=== PATIENT | female | born 2000 | race Caucasian/White ===

== ENCOUNTER → 2020-01-14 11:00 | Outpatient (CLI) | payer OTHER, MEDICAID, SELFPAY ==
--- NOTE | 2020-01-14 11:08 | ECHOD_ITS ---
Reason For Study: Chest pain Procedure This was a 2D Doppler, Color Flow transthoracic echocardiogram. Exam performed in department. Left Ventricle Normal LV size. Left ventricular systolic function is normal. The estimated ejection fraction is 55 %. Normal diastology for age. No regional wall motion abnormalities noted. Right Ventricle Normal RV size. Normal systolic function. Atria Normal left atrium. Normal right atrium. Mitral Valve Normal mitral valve. Tricuspid Valve Normal tricuspid valve. Aortic Valve Normal aortic valve. Trisinus/trileaflet aortic valve. Pulmonic Valve Normal pulmonic valve. Great Vessels Normal aortic root. The pulmonary artery is normal size. Normal inferior vena cava. Pericardium/Pleural No pericardial effusion. MMode/2D Measurements & Calculations LVIDd: 4.7 cm IVSd: 0.77 cm Ao root diam: 2.4 cm LVIDs: 3.2 cm LVPWd: 0.76 cm RVDd: 2.9 cm FS: 31.2 % LAV(MOD-bp): 39.1 ml LVAd ap4: 26.5 cm2 SV(MOD-sp4): 37.5 ml LAV(MOD-bp) Indexed: 21.5 ml/m2 EDV(MOD-sp4): 66.3 ml LAV(MOD-sp2): 26.4 ml EDV(sp4-el): 69.2 ml LAV(MOD-sp4): 43.9 ml LVAs ap4: 15.1 cm2 ESV(MOD-sp4): 28.8 ml ESV(sp4-el): 28.4 ml EF(MOD-sp4): 56.6 % EF(sp4-el): 59.0 % SV(sp4-el): 40.8 ml LA A4 area: 17.0 cm2 LA dimension(2D): 2.6 cm RA A4 area: 9.8 cm2 Doppler Measurements & Calculations MV E max rusty: 105.8 cm/sec Lat Peak E' Rusty: 24.3 cm/sec Med Peak E' Rusty: 14.1 cm/sec MV A max rusty: 81.0 cm/sec E/E' lat: 4.4 E/E' med: 7.5 MV E/A: 1.3 Ao V2 max: 146.8 cm/sec LV V1 max: 108.1 cm/sec PA V2 max: 107.7 cm/sec Ao max P.6 mmHg LV V1 max P.7 mmHg Interpretation Summary Normal LV size. Left ventricular systolic function is normal. The estimated ejection fraction is 55 %. Normal diastology for age. Ordering Physician: LINDSEY MCDONNELL Referring Physician: LINDSEY MCDONNELL Performed By: Nayana Cook RDCS
== END ==
DX: R07.89 Other chest pain (principal)
CPT/HCPCS: 93306

== ENCOUNTER → 2020-02-22 | Outpatient (CLI) | payer OTHER, SELFPAY ==
[2020-02-22 12:40] VITALS: BMI 21.2
[2020-02-22 16:45] LABS: Mucous, Urine 0 SEEN /hpf (<or=2+)
[2020-02-22 17:04] LABS: Color, Urine Yellow (Yellow); Glucose, Dipstick Normal (Normal); Leukocyte Esterase-Dipstick 25 /ul (Negative); Nitrite-Dipstick Negative (Negative); Occult Blood-Urine 150 /ul (Negative); Protein-Dipstick 30 mg/dl (Negative); Specific Gravity, Urine 1.025 (1.002-1.030); Urine Bilirubin Dipstick Negative (Negative); Urine Clarity Sl. Cloudy (Clear); Urine Urobilinogen 1 mg/dl (Normal)
[2020-02-22 17:36] LABS: Ketone-Dipstick 150 mg/dl (Negative)
[2020-02-22 17:39] LABS: White Blood Cells 5-10 SEEN /hpf (0-5)
[2020-02-22 17:40] LABS: Bacteria 1+ /hpf (None Seen); Red Blood Cells-Urine 0-5 SEEN /hpf (0-5); Squamous Epithelial Cells - UA 5-10 SEEN /hpf (5-10)
== END | disposition home or self-care (01) ==
LOC: LABSPEC 15:20
PROVIDERS: Referring Provider Physician Assistant; Visit Provider Physician Assistant
DX: R30.0 Dysuria (principal)
CPT/HCPCS: 81001; 87086; 87088

== ENCOUNTER → 2020-07-15 10:09 | Outpatient (CLI) | payer OTHER, MEDICAID, SELFPAY ==
[2020-06-26 13:45] VITALS: BMI 28.8
--- NOTE | 2020-07-15 16:05 | STRESSREP_ITS ---
Stress Test Report Date: Procedure: Exercise tolerance test Indications: Chest pain Consent: Per the patient Procedure: The patient exercised on a Jeronimo protocol for 9 minutes completing Stage III achieving a peak heart rate of 181 bpm (91% predicted maximal heart rate) with a peak blood pressure 142/70 mmHg and a peak MET capacity of approximately 10 MET's. The baseline ECG demonstrated normal sinus rhythm. The peak exercise ECG demonstrated no obvious ECG changes. There were no cardiac dysrhythmias pretest, during exercise, or recovery. The functional capacity was considered good. The patient had no complaint of chest discomfort during exercise or recovery. The examination was discontinued secondary to dyspnea. Impression: 1. Technically adequate (percent predicted maximal heart rate greater than 85%) exercise tolerance test 2. Peak exercise ECG with with no obvious ECG changes 3. There were no cardiac dysrhythmias during exercise or recovery This note was generated with [employer] software. It may contain incorrect words, spelling, and punctuation that were not noted in checking the note before signing.
== END ==
PROVIDERS: Referring Provider Internal Medicine Cardiovascular Disease; Visit Provider Internal Medicine Cardiovascular Disease
DX: R07.9 Chest pain, unspecified (principal); R94.31 Abnormal electrocardiogram [ECG] [EKG]
CPT/HCPCS: 93017

== ENCOUNTER → 2021-03-16 | Outpatient (CLI) | payer OTHER, MEDICAID, SELFPAY | END | disposition home or self-care (01) | LOC: LABSPEC 10:11 | PROVIDERS: Visit Provider Physician Assistant Surgical | DX: R50.9 Fever, unspecified (principal) | CPT/HCPCS: 87635; U0005; U0003 ==

== ENCOUNTER → 2021-07-06 | Outpatient (CLI) | payer OTHER, MEDICAID, SELFPAY | END | disposition short-term general hospital (02) | LOC: IMMUN 08-03 14:20 | PROVIDERS: Visit Provider Family Medicine | DX: Z23 Encounter for immunization (principal) ==

== ENCOUNTER 2022-02-10 05:50 | Emergency (ER) | payer BC, MEDICAID, SELFPAY ==
[2022-02-10 05:51] VITALS: BP 139/78; PULSE 110; RESP 16; TEMP 36.8; O2SAT 98; BMI 32.1
--- NOTE | 2022-02-10 06:04 | RAD_ITS ---
EXAM: XR LEFT FOOT COMPLETE, 3 OR MORE VIEWS CLINICAL INDICATION: Trauma Trauma TECHNIQUE: Frontal, lateral and oblique views of the left foot. This report was created using [employer] report generation technology. COMPARISON: X-ray ankle. FINDINGS: BONES/JOINTS: Unremarkable. No acute fracture. No subluxation. Normal alignment. Preservation of the joint space. No sclerotic or destructive changes observed. SOFT TISSUES: Unremarkable. No soft tissue swelling or gas. No radiopaque foreign body. RAD/Foot min 3 Views IMPRESSION: Negative left foot x-rays. Electronically Signed: Augusto Joseph MD at 7:31 EDT Reading Location ID and State: [facility] / [place] , Service support ,
--- NOTE | 2022-02-10 06:04 | ED.VIS.LOWEX ---
HPI History of Present Illness Chief Complaint: Lower Extremity Injury Informant: patient Narrative Narrative: Patient presents with left ankle and foot pain after stepping off a curb and what sounds like an inversion injury last night at approximately 20-30. Did not fall to the ground. Really did not hurt much at the time. No other injury. No numbness tingling. She does have history of prior injuries to the area. She actually shows up in a boot orthosis and crutches that she already had at home. [facility] Medical History (Updated 02/10/22 @ 07:[address] Brad Johnston MD) Abnormal EKG Anorexia nervosa Anxiety Chest pain Depression Home Medications calcium carbonate 500 mg-vitamin D3 5 mcg (200 unit) tablet 1 ea PO DAILY 02/20/17 [History Last Taken Unknown] cetirizine 10 mg tablet (Zyrtec) 10 mg PO DAILY 06/26/20 [History Last Taken Unknown] ergocalciferol (vitamin D2) 1,250 mcg (50,000 unit) capsule 1,250 mcg PO QWEEK 06/26/20 [History Last Taken Unknown] fluticasone propionate 50 mcg/actuation nasal spray,suspension (Allergy Relief (fluticasone)) 1 spray intranasal DAILY PRN 06/26/20 [History Last Taken Unknown] hydroxyzine HCl 10 mg tablet 10 mg PO DAILY PRN 06/26/20 [History Last Taken Unknown] norethindrone 1 mg-ethinyl estradiol 35 mcg (21) tablet (Nortrel) 1 tab PO DAILY 06/26/20 [History Last Taken Unknown] sertraline 100 mg tablet 100 mg PO DAILY 06/26/20 [History Last Taken Unknown] spironolactone 100 mg tablet 100 mg PO DAILY 06/26/20 [History Last Taken Unknown] niacin 500 mg tablet 500 mg PO BID 07/08/20 [History Last Taken Unknown] Allergy/AdvReac Type Severity Reaction Status Date / Time cocoa Allergy Mild Food Verified 03/16/21 08:30 Allergy red dye Allergy Mild Food Verified 03/16/21 08:30 Allergy Family History Uncle Myocardial infarction Social History Smoking Status: Never smoker alcohol intake: current details: occasional substance use type: does not use caffeine: Yes (occasional) EXAM Physical Exam Const Vital Signs: 02/10/22 05:51 Temperature 98.2 F Temperature Source Temporal Pulse Rate 110 H Respiratory Rate 16 Blood Pressure 139/78 H Blood Pressure Mean 98 Pulse Ox 98 Oxygen Delivery Method Room Air Positive well nourished and well developed General Appearance ED: well developed and NAD HEENT normocephalic and atraumatic Resp normal respiratory effort and clear to auscultation bilaterally Extremity Extremity Narrative: Achilles is intact by palpation and Connolly test. No notable swelling or deformity. She has some mild tenderness at the medial malleolus and proximal fifth metatarsal. No calcaneus tenderness. No tenderness more proximally up the tibia or fibula. Knee is not involved. Neuro no sensory deficits noted Sensorium / Orientation: alert Motor Exam: strength 5/5 throughout Skin no wounds Skin Narrative: No cuts abrasions or lacerations. No bruising at this point Lesions: no lesions Rashes: no rashes MDM MDM MDM Narrative Medical decision making narrative: Three-view x-ray of the patient's left foot and three-view x-ray of the patient's left ankle read by me show normal mineralization. I see no acute fracture or dislocation. Patient already has a boot orthosis and crutches which she can use. I will write for a stirrup splint that she can transition to. She should ice elevate. She sees [facility] and can follow-up with them Discharge Plan Triage Chief Complaint: Lower Extremity Injury Other Complaint: Upper Extremity Injury ED Provider: Brad Johnston Dx/Rx/DC Orders Clinical Impression: Injury of left ankle, Injury of foot, left Instructions: ED Foot Sprain, ED Ankle Sprain (Adult) Prescriptions: No Action cetirizine [Zyrtec] 10 mg tablet 10 mg PO DAILY hydroxyzine HCl 10 mg tablet 10 mg PO DAILY PRN sertraline 100 mg tablet 100 mg PO DAILY spironolactone 100 mg tablet 100 mg PO DAILY ergocalciferol (vitamin D2) 1,250 mcg (50,000 unit) capsule 1,250 mcg PO QWEEK Nortrel 1/35 (21) 1-35 mg-mcg (21) tablet 1 tab PO DAILY fluticasone propionate [Allergy Relief (fluticasone)] 50 mcg/actuation spray,suspension 1 spray INTRANASAL DAILY PRN Rx Instructions: administer into each nostril calcium carbonate-vitamin D3 1 EACH tablet 1 ea PO DAILY niacin 500 mg tablet 500 mg PO BID Primary Care Provider: LINDSEY MCDONNELL Referrals: Papi Morrell MD [STAFF PHYSICIAN] - 3-5 Days Care Physician,No Primary [NON-STAFF] - Disposition Disposition: Home, Self Care
--- NOTE | 2022-02-10 06:49 | RAD_ITS ---
EXAM: XR LEFT ANKLE COMPLETE, 3 OR MORE VIEWS CLINICAL INDICATION: Trauma Trauma TECHNIQUE: Frontal, lateral and oblique views of the left ankle. This report was created using [employer] report generation technology. COMPARISON: None. FINDINGS: BONES/JOINTS: Unremarkable. No acute fracture. No subluxation. Normal alignment. Preservation of the joint space. No sclerotic or destructive changes observed. SOFT TISSUES: Unremarkable. No soft tissue swelling or gas. No radiopaque foreign body. RAD/Ankle min 3 Views IMPRESSION: Negative left ankle x-rays. Electronically Signed: Augusto Joseph MD at 7:29 EDT Reading Location ID and State: [facility] / [place] , Service support ,
[2022-02-10 07:35] VITALS: BP 112/69; PULSE 73; RESP 15; O2SAT 97
== END 2022-02-10 07:36 | disposition home or self-care (01) ==
PROVIDERS: Emergency Provider Emergency Medicine; Visit Provider Emergency Medicine
DX: S99.922A Unspecified injury of left foot, initial encounter (principal); S99.912A Unspecified injury of left ankle, initial encounter; X50.1XXA Overexertion from prolonged static or awkward postures, initial encounter; F32.A Depression, unspecified; Z79.899 Other long term (current) drug therapy
CPT/HCPCS: 73610; 73630; 99283

== ENCOUNTER → 2022-03-10 | Outpatient (CLI) | payer BC, MEDICAID, SELFPAY ==
[2022-03-10 10:21] LABS: Absolute Lymphocyte Count 3.02 X10^3/uL (0.83-4.51); Absolute Neutrophil Count 3.8 X10^3/uL (2.0-7.7); Basophil# 0.03 X10^3/uL; Basophil% 0.4 % (0-1); Eosinophil# 0.11 X10^3/uL; Eosinophils% 1.5 % (0-5); Hematocrit 40.4 % (37-47); Hemoglobin 13.2 g/dL (12.0-15.0); Lymphocyte # 3.02 X10^3/ul (0.83-4.51); Lymphocyte % 40.9 % (19-41); Mean Corp Hgb Conc 32.7 g/dL (32-36); Mean Corpuscular Hgb 28.4 pg (27.0-32.0); Mean Corpuscular Volume 87.1 fL (81-99); Mean Platelet Vol. 10.3 fl (6.2-12.0); Monocyte# 0.43 X10^3/uL; Monocyte% 5.8 % (0-10); NRBC Flagged by Analyzer 0 % (0-5); Neutrophil # 3.76 X10^3/uL (2.7-7.7); Platelet Count 269 K/mm3 (150-450); RBC Distribution Width CV 13.8 % (11.6-14.6); RBC Distribution Width SD 43.7 fl (35.1-43.9); Red Blood Count 4.64 M/mm3 (4.2-5.4); White Blood Count 7.4 K/mm3 (4.4-11.0)
[2022-03-10 10:36] LABS: Hemoglobin A1c 5.6 % (3.8-5.6)
[2022-03-10 11:02] LABS: ALB/GLOB Ratio 0.6 RATIO (0.9-2.4); AST(SGOT) 34 U/L (15-37); Alanine Aminotransfer ALT/SGPT 41 U/L (13-56); Alkaline Phosphatase 100 U/L (45-117); Anion Gap 7 (5-15); BUN 12 mg/dL (7-18); BUN/Creat Ratio 13.9 RATIO (10-20); Calcium,Total 9.1 mg/dL (8.5-10.1); Chloride 105 mmol/L (98-107); Cholesterol 273 mg/dL (200); Creatinine, Serum 0.86 mg/dL (0.55-1.02); EST Glomerular Filtration Rate 86 mL/min (>60); Est Glom Filt Rate - Afr Amer 104 mL/min (>60); Glucose 86 mg/dL (74-106); High Density Lipoprotein 60 mg/dL; Sodium Level 140 mmol/L (136-145); Triglycerides 183 mg/dL; Very Low Density Lipoprotein 37 mg/dL (5-40)
== END | disposition home or self-care (01) ==
DX: Z13.6 Encounter for screening for cardiovascular disorders (principal); R73.03 Prediabetes; E78.2 Mixed hyperlipidemia
CPT/HCPCS: 36415; 80053; 80061; 83036; 85025